=== PATIENT | male | born 1990 | race Caucasian/White ===

== ENCOUNTER 2016-03-12 22:44 | Emergency (ER) | payer OTHER ==
[2016-03-12 23:57] LABS: MEAN CORPUSCULAR HEMOGLOBIN 28.9 pg (27.0-33.0); MEAN CORPUSCULAR VOLUME 87.6 fl (80.0-96.0); RED CELL DISTRIBUTION WIDTH 13.1 % (11.5-14.5); WHITE BLOOD COUNT 12.2 K/mm3 (4.0-10.0)
[2016-03-13 00:09] LABS: AMPHETAMINES LEVEL URINE NEGATIVE (NEGATIVE); BENZODIAZEPINES URINE NEGATIVE (NEGATIVE); COCAINE METABOLITE URINE NEGATIVE (NEGATIVE); CONTROL LINE INT CTR LINE PRESENT; METHADONE URINE NEGATIVE (NEGATIVE); OPIATES URINE NEGATIVE (NEGATIVE); TRICYCLIC ANTIDEPRESS URINE NEGATIVE (NEGATIVE)
[2016-03-13 00:30] LABS: ALBUMIN 4.3 GM/DL (3.2-5.2); ALBUMIN/GLOBULIN RATIO 1.26 (1.00-1.93); ALKALINE PHOSPHATASE 56 U/L (45-117); ALT/SGPT 27 U/L (12-78); ANION GAP 10 MEQ/L (8-16); AST/SGOT 16 U/L (15-37); BILIRUBIN,DIRECT < 0.1 MG/DL (0.0-0.2); BILIRUBIN,TOTAL 0.3 MG/DL (0.2-1.0); BLOOD UREA NITROGEN 16 MG/DL (7-18); CALCIUM LEVEL 8.8 MG/DL (8.5-10.1); CARBON DIOXIDE LEVEL 28 MEQ/L (21-32); CHLORIDE LEVEL 104 MEQ/L (98-107); CREATININE FOR GFR 1.06 MG/DL (0.70-1.30); GLOMERULAR FILTRATION RATE > 60.0 (>60); GLUCOSE, FASTING 102 MG/DL (70-105); POTASSIUM SERUM 4.3 MEQ/L (3.5-5.1); SODIUM LEVEL 142 MEQ/L (136-145); TOTAL PROTEIN 7.7 GM/DL (6.4-8.2)
--- NOTE | 2016-03-13 02:56 | EDDOCDS ---
Physician Documentation [facility] Name: Guero Timmons Age: 25 yrs Sex: Male : 1990 Arrival Date: 03/12/2016 Time: 22:44 Bed [facility] Private MD: Disposition: 03/13/16 02:16 Discharged to Home/Self Care. Impression: Acute stress reaction. - Condition is Stable. - Discharge Instructions: Helping Someone Who is Suicidal, Panic Attacks, Self-Destructive Behavior, Anger Management, Panic Attacks, [id number]. - Medication Reconciliation, Local Pharmacy Hours form. - Follow up: Winston León, Behavioral Health; When: Today; Reason: Continuance of care. - Problem is an acute exacerbation. - Symptoms have improved. Historical: - Allergies: no known allergies; - Home Meds: 1. none - PMHx: none; - PSHx: none; - Social history: Smoking status: Chewing Tobacco No barriers to communication noted, The patient speaks fluent Cameroonian, Speaks appropriately for age. - Family history: Not pertinent. - : The pt / caregiver states he / she is not on anticoagulants. Home medication list is obtained from the patient. - Exposure Risk Screening:: None identified. Vital Signs: 03/12 22:48 BP 136 / 77; Pulse 86; Resp 18; Temp 98.2(O); Pulse Ox 97% on R/A; Weight 90.72 kg / sls1 200 lbs; Height 5 ft. 6 in. (167.64 cm); Pain 0/10; 03/13 02:54 BP 158 / 98; Pulse 62; Resp 16; Temp 98.2; Pulse Ox 100% ; Pain 0/10; slm 03/12 22:48 Body Mass Index 32.28 (90.72 kg, 167.64 cm) sls1 MDM: 03/12 23:00 Consult PFS/PSA/Cash Surrender Calculator ordered. mm11 23:00 Consult PFS/PSA/Cash Surrender Calculator: Patient's case requires discussion with on-call mm11 Psychiatrist ordered. 23:00 PSA/PFS to call Nursing Motion Picture Set Up Worker, to enter patient data on [place] Safe [place] if patient mm11 involuntarily admitted or transferred for SI or HI ordered. 23:00 Confirm accurate psychiatric medication list and times of last dosage ordered. mm11 23:00 Detain Pt Until Medically/PFS Cleared ordered. mm11 23:07 Acetaminophen Level Ordered. EDMS 23:07 Basic Metabolic Profile Ordered. EDMS 23:07 Complete Blood Count Ordered. EDMS 23:07 Drug Eval Toxicology ED Only Ordered. EDMS 23:07 Ethyl Alcohol (ethanol) Ordered. EDMS 23:07 Liver Profile Ordered. EDMS 23:07 Salicylate Level Ordered. EDMS 23:07 Thyroid Stimulating Hormone Ordered. EDMS 03/13 00:45 Acetaminophen Level Reviewed. mm11 00:45 Complete Blood Count Reviewed. mm11 00:45 Salicylate Level Reviewed. mm11 00:45 Basic Metabolic Profile Reviewed. mm11 00:45 Drug Eval Toxicology ED Only Reviewed. mm11 00:45 Ethyl Alcohol (ethanol) Reviewed. mm11 00:45 Liver Profile Reviewed. mm11 00:45 Thyroid Stimulating Hormone Reviewed. mm11 01:07 Financial registration complete. [facility] 01:29 Consult PFS/PSA/Cash Surrender Calculator complete. cl 01:29 Consult PFS/PSA/Cash Surrender Calculator: Patient's case requires discussion with on-call cl Psychiatrist complete. 01:29 PSA/PFS to call Nursing Motion Picture Set Up Worker, to enter patient data [place] Safe [place] if patient cl involuntarily admitted or transferred for SI or HI complete. 01:58 [facility] Payment Agreement was scanned into [employer] and attached to record. [facility] Signatures: Dispatcher [employer] EDMS Roman Rios PSA PSA cl Wagner Pedersen, DO DO mm11 Ana Beltrán, RN RN sls1 Gena Samayoa LPN LPN Joya Lee [facility] The chart was reviewed and I authenticate all verbal orders and agree with the evaluation and treatment provided.Corrections: (The following items were deleted from the chart) 03/12 23: 23:00 ACETAMINOPHEN LEVEL+LAB ordered. EDMS EDMS 23: 23:00 BASIC METABOLIC PROFILE+LAB ordered. EDMS EDMS 23: 23:00 COMPLETE BLOOD COUNT+LAB ordered. EDMS EDMS 23: 23:00 DRUG EVAL TOXICOLOGY ED ONLY+LAB ordered. EDMS EDMS 23: 23:01 ETHYL ALCOHOL (ETHANOL)+LAB ordered. EDMS EDMS 23:01 23:01 HCG, QUALITATIVE+LAB ordered. EDMS EDMS 23: 23:01 LIVER PROFILE+LAB ordered. EDMS EDMS 23: 23:01 SALICYLATE LEVEL+LAB ordered. EDMS EDMS 23:01 23:01 THYROID STIMULATING HORMONE+LAB ordered. EDMS EDMS : 03/13 01:58 [facility] Payment Agreement [facility]
--- NOTE | 2016-03-13 02:56 | EDDOCDS ---
Nurse's Notes [facility] Name: Guero Timmons Age: 25 yrs Sex: Male : 1990 Arrival Date: 03/12/2016 Time: 22:44 Bed [facility] Private MD: Diagnosis: Acute stress reaction Presentation: 03/12 22:45 Presenting complaint: EMS states: Pt having argument with ex in [place], reports sls1 ex called EMS stating he was suicidal, pt does report making statements via text, but reports " said out of anger" Pt denies SI or HI. Mental Health Triage Level: Level 2: Suicidal statements. Adult Sepsis Screening: The patient does not have new or worsening altered mentation. Patient's respiratory rate is less than 22. Systolic blood pressure is greater than 100. Patient has a qSOFA score of 0- Negative Sepsis Screen. Suicide/Homicide risk assessment- the patient denies having any suicidal and/or homicidal ideations and does not present with any other emotional, behavioral or mental health complaints. 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 Transition of care: patient was not received from another setting of care. 22:45 Acuity: CECILE Level 3 sls1 22:45 Method Of Arrival: Ambulance sls1 Triage Assessment: 22:48 General: Appears in no apparent distress, Behavior is appropriate for age, cooperative. sls1 Pain: Denies pain. Pt Declines HIV testing. The patient is triaged at the bedside. See Assessment in Nurses Notes section of ED record. Neurological: Level of Consciousness is awake, alert. Respiratory: Airway is patent Respiratory effort is even, unlabored, Respiratory pattern is regular, symmetrical. Derm: No deficits noted. Historical: - Allergies: no known allergies; - Home Meds: 1. none - PMHx: none; - PSHx: none; - Social history: Smoking status: Chewing Tobacco No barriers to communication noted, The patient speaks fluent Turkmen, Speaks appropriately for age. - Family history: Not pertinent. - : The pt / caregiver states he / she is not on anticoagulants. Home medication list is obtained from the patient. - Exposure Risk Screening:: None identified. Screenin:49 Screening information is obtained from the patient. Fall risk: No risks identified. sls1 Assistance ADL's: requires no assistance with activities of daily living. Abuse/DV Screen: The patient / caregiver reports he/she is: not in a situation that causes fear, pain or injury. Nutritional screening: No deficits noted. Advance Directives: Further advance directive information is declined. home support is adequate. Assessment: 22:49 General: Appears in no apparent distress, Behavior is appropriate for age, cooperative, sls1 see triage assessment. 23:25 General: Appears in no apparent distress, comfortable, Behavior is appropriate for age, slm cooperative, pleasant. General: pt sitting on stretcher quietly Chain of command in room . Neurological: Level of Consciousness is awake, alert, obeys commands. Respiratory: Airway is patent Respiratory effort is even, unlabored. Derm: Skin is pink, warm & dry. 03/13 00:30 General: Appears in no apparent distress, comfortable, Behavior is appropriate for age, slm cooperative, pleasant. General: pt sitting on stretcher chain of command in room . Respiratory: Airway is patent Respiratory effort is even, unlabored. 01:43 General: Appears in no apparent distress, comfortable. General: pt sitting on stretcher slm chain of command in room security observing . Pain: Denies pain. Neurological: Level of Consciousness is awake, alert, obeys commands. Respiratory: Airway is patent Respiratory effort is even, unlabored. 02:53 Reassessment: Patient appears in no apparent distress at this time. Pain: Denies pain. slm Respiratory: No deficits noted. 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 [facility] Behavioral Health: cl The patient is not an established patient of [facility] Behavioral Health. Referral Information: Evaluation referral is generated by Winston León [facility]. The patient was referred for evaluation because Pt was speaking with ex- annie in [place] and allegedly made suicidal comment?. Subjective: The patients chief complaint is Pt is calm/cooperative/pleasant, reports he had been speaking with ex annie and at one point they were having disagreement, pt admits he said "something out of anger that I didn't mean" and apparently [facility] was contacted. Pt adamantly denies any suicidal thought/plan/intent, denies any prior psych hx, denies any prior attempts at self harm. Pt from spouse x 1 year after 3 year marriage(they have 2 children), pt states they have been reconciling and actually plan to re- in 2 weeks. Pt reports he received message today from female acquaintance(whom he'd been seeing in recent past) and found out she is , she informed him of this today but is unconfirmed. Pt was fearing he may be father and discussed this with ex , felt at one point ex may be re-considering getting re- and pt made statement at that time. Pt reports they actually finished the conversation by face-timing and all seemed well, then he receive a phone call that there were concerns about his safety and PERRY arrived. Pt continues to flatly deny any SI or safety issues, denies any other stressors, doing well in [employer](4 years/no deployments), can CFS. . Delusions are denied. Patient's mood is dysphoric, Hallucinations are denied. Mental Health history: no relevant mental health problems or treatments. Mental Health Admissions: None. Current Outpatient Mental Health Services: None. Current living environment is The patient is . Patient presents to Emergency Department with the following symptoms within the past 2 weeks: relational problem, suicidal ideation with no plan. Substance abuse: Pt denies. Mental status exam: Patients appearance is appropriate, Patient's behavior is cooperative, Speech is normal. Affect is appropriate. Mood is dysphoric. Hallucinations are denied. Appetite is normal. Memory is good. Energy level is normal. Content of thought is normal. Thought process is intact. Cognitive level is oriented to person, place, time and situation Patient's insight is fair. Judgement is fair. Rapport with interviewer is good. Suicidal Ideation is denied. Homicidal ideation is denied. Disposition: Medically cleared for disposition by Wagner Pedersen DO Psychiatric Consult is deferred per ED physician, Dr Pedersen. The patient has a safe destination which is back to [place] with NCO's, can CFS and denies SI/HI, will f/u at [facility] later this morning per protocol. [facility] Admission Criteria: Not Applicable. [place] because the patient does not display any suicidal or homicidal ideations and does not pose a risk to self or others. DSM-V Differential Diagnosis: Acute Stress Disorder (F 43.0). Insurance Pre-Certification: Not Required. Vital Signs: 03/12 22:48 BP 136 / 77; Pulse 86; Resp 18; Temp 98.2(O); Pulse Ox 97% on R/A; Weight 90.72 kg; [facility] Height 5 ft. 6 in. (167.64 cm); Pain 0/10; 03/13 02:54 BP 158 / 98; Pulse 62; Resp 16; Temp 98.2; Pulse Ox 100% ; Pain 0/10; slm 03/12 22:48 Body Mass Index 32.28 (90.72 kg, 167.64 cm) [facility] Vitals: 03/12 22:48 Log In Time N/A - ambulance arrival. [facility] ED Course: 22:45 Patient visited by Luther Bah. zo 22:45 Patient moved to [facility] zo 22:45 Patient moved to [facility] zo 22:47 Triage Initiated [facility] 22:49 The patient / caregiver is instructed regarding the plan of care and ED course. [facility] Accompanied by escort, Patient has correct armband on for positive identification. Security observing. Cardiac monitoring not applicable on this patient. 22:50 Patient visited by Ana Beltrán RN. [facility] 22:59 Wagner Pedersen DO is Attending Physician. [facility] 22:59 Patient visited by Wagner Pedersen DO. [facility] 23:24 Gena Samayoa LPN is Primary Nurse. [facility] 23:26 Patient visited by Gena Samayoa LPN. [facility] 23:27 Patient visited by Gena Samayoa LPN. [facility] 23:27 No IV's were initiated during this patient's visit. No procedures done that require slm assistance. Labs drawn. (by ED staff). Sent per order to lab. Urine collected. Urine specimen sent to lab. 23:27 Acetaminophen Level Sent. m 23:27 Basic Metabolic Profile Sent. m 23:27 Complete Blood Count Sent. [facility] 23:27 Drug Eval Toxicology ED Only Sent. slm 23:27 Ethyl Alcohol (ethanol) Sent. [facility] 23:27 Liver Profile Sent. [facility] 23:27 Salicylate Level Sent. [facility] 23:27 Thyroid Stimulating Hormone Sent. [facility] 23:34 Accompanied by Law Enforcement, Patient has correct armband on for positive tmm1 identification. Placed in gown. Placed in psych safe attire. Bed in low position. Side rails up X 1. Security observing. Property removed, inventory done, secured in secure belongings bag, Placed locker #5. Door closed. Noise minimized. Visitors limited. chain of command notified and in room . 23:45 Psych Safety Check: Location: Psych Room. Visual Assessment: Cooperative. tmm1 03/13 00:00 Psych Safety Check: Location: Psych Room. Visual Assessment: Cooperative. tmm1 00:10 Patient visited by Charlene Blake PCA. tmm1 00:28 Patient visited by Wagner Pedersen DO. mm11 00:50 Patient visited by Charlene Blake PCA. tmm1 01:15 Patient visited by Charlene Blake PCA. tmm1 01:44 Patient visited by Gena Samayoa LPN. slm 01:58 Patient name changed from Guero\\S\\\\S\\Timmons\\S\\ to Guero\\S\\Timothy\\S\\Timmons. EDMS 01:58 [facility] Payment Agreement was scanned into [employer] and attached to record. [facility] 02:16 [facility] is Referral Physician. mm11 02:54 Patient visited by Gena Samayoa LPN. slm 02:55 Patient visited by Gena Samayoa LPN. [facility] Order Results: Lab Order: Acetaminophen Level; SPEC'M 03/12/16 23:20 Test: ACETAMINOPHEN LEVEL; Value: < 2.0; Range: 10.0-30.0; Abnormal: Below low normal; Units: UG/ML; Status: F Lab Order: Basic Metabolic Profile; SPEC'M 03/12/16 23:20 Test: GLUCOSE, FASTING; Value: 102; Range: 70-105; Units: MG/DL; Status: F Test: BLOOD UREA NITROGEN; Value: 16; Range: 7-18; Units: MG/DL; Status: F Test: CREATININE FOR GFR; Value: 1.06; Range: 0.70-1.30; Units: MG/DL; Status: F Test: GLOMERULAR FILTRATION RATE; Value: > 60.0; Range: >60; Status: F Test: SODIUM LEVEL; Value: 142; Range: 136-145; Units: MEQ/L; Status: F Test: POTASSIUM SERUM; Value: 4.3; Range: 3.5-5.1; Units: MEQ/L; Status: F Test: CHLORIDE LEVEL; Value: 104; Range: 98-107; Units: MEQ/L; Status: F Test: CARBON DIOXIDE LEVEL; Value: 28; Range: 21-32; Units: MEQ/L; Status: F Test: ANION GAP; Value: 10; Range: 8-16; Units: MEQ/L; Status: F Test: CALCIUM LEVEL; Value: 8.8; Range: 8.5-10.1; Units: MG/DL; Status: F Test Note: ; Units are mL/min/1.73 m2 Chronic Kidney Disease Staging per NKF: Stage I & II GFR >=60 Normal to Mildly Decreased Stage III GFR 30-59 Moderately Decreased Stage IV GFR 15-29 Severely Decreased Stage V GFR <15 Very Little GFR Left ESRD GFR <15 on BILLET CUTTER Lab Order: Complete Blood Count; SPEC'M 03/12/16 23:20 Test: WHITE BLOOD COUNT; Value: 12.2; Range: 4.0-10.0; Abnormal: Above high normal; Units: K/mm3; Status: F Test: RED BLOOD COUNT; Value: 5.58; Range: 4.30-6.10; Units: M/mm3; Status: F Test: HEMOGLOBIN; Value: 16.1; Range: 14.0-18.0; Units: g/dl; Status: F Test: HEMATOCRIT; Value: 48.9; Range: 42.0-52.0; Units: %; Status: F Test: MEAN CORPUSCULAR VOLUME; Value: 87.6; Range: 80.0-96.0; Units: fl; Status: F Test: MEAN CORPUSCULAR HEMOGLOBIN; Value: 28.9; Range: 27.0-33.0; Units: pg; Status: F Test: MEAN CORPUSCULAR HGB CONC; Value: 33.0; Range: 32.0-36.5; Units: g/dl; Status: F Test: RED CELL DISTRIBUTION WIDTH; Value: 13.1; Range: 11.5-14.5; Units: %; Status: F Test: PLATELET COUNT, AUTOMATED; Value: 232; Range: 150-450; Units: k/mm3; Status: F Lab Order: Drug Eval Toxicology ED Only; SPEC'M 03/12/16 23:20 Test: AMPHETAMINES LEVEL URINE; Value: NEGATIVE; Range: NEGATIVE; Status: F Test: BARBITURATES URINE; Value: NEGATIVE; Range: NEGATIVE; Status: F Test: BENZODIAZEPINES URINE; Value: NEGATIVE; Range: NEGATIVE; Status: F Test: CANNABINOIDS URINE; Value: NEGATIVE; Range: NEGATIVE; Status: F Test: COCAINE METABOLITE URINE; Value: NEGATIVE; Range: NEGATIVE; Status: F Test: METHADONE URINE; Value: NEGATIVE; Range: NEGATIVE; Status: F Test: OPIATES URINE; Value: NEGATIVE; Range: NEGATIVE; Status: F Test: TRICYCLIC ANTIDEPRESS URINE; Value: NEGATIVE; Range: NEGATIVE; Status: F Test Note: ; ALL PRESUMPTIVE POSITIVE FINDINGS ARE UNCONFIRMED NORMAL VALUES THRESHOLD IN NG/ML AMPHETAMINES 1000 METHAMPHETAMINES 1000 BARBITURATES 300 BENZODIAZEPINES 300 CANNABINOIDS (THC) 50 COCAINE METABOLITE 300 METHADONE 300 OPIATES 300 PHENCYCLIDINE 25 TRICYCLIC ANTIDEPRESSANTS 1000 RESULTS ARE FOR MEDICAL PURPOSES ONLY. ALL URINE SPECIMENS WILL BE SAVED FOR 3 DAYS. IF CONFIRMATION OF A PRESUMPTIVE POSTIVE SCREEN RESULT IS DESIRED, CALL CHEMISTRY ([phone]) AND REQUEST URINE TO BE SENT TO REFERENCE LAB. FOR A LIST OF CLOSELY RELATED COMPOUNDS PLEASE CALL THE LAB. Lab Order: Ethyl Alcohol (ethanol); SPEC'M 03/12/16 23:20 Test: ETHYL ALCOHOL (ETHANOL); Value: < 0.003; Range: 0.000-0.010; Units: %; Status: F Lab Order: Liver Profile; SPEC'M 03/12/16 23:20 Test: AST/SGOT; Value: 16; Range: 15-37; Units: U/L; Status: F Test: ALT/SGPT; Value: 27; Range: 12-78; Units: U/L; Status: F Test: ALKALINE PHOSPHATASE; Value: 56; Range: 45-117; Units: U/L; Status: F Test: BILIRUBIN,TOTAL; Value: 0.3; Range: 0.2-1.0; Units: MG/DL; Status: F Test: BILIRUBIN,DIRECT; Value: < 0.1; Range: 0.0-0.2; Units: MG/DL; Status: F Test: TOTAL PROTEIN; Value: 7.7; Range: 6.4-8.2; Units: GM/DL; Status: F Test: ALBUMIN; Value: 4.3; Range: 3.2-5.2; Units: GM/DL; Status: F Test: ALBUMIN/GLOBULIN RATIO; Value: 1.26; Range: 1.00-1.93; Status: F Lab Order: Salicylate Level; SPEC'M 03/12/16 23:20 Test: SALICYLATE LEVEL; Value: < 1.7; Range: 5.0-30.0; Abnormal: Below low normal; Units: MG/DL; Status: F Lab Order: Thyroid Stimulating Hormone; SPEC'M 03/12/16 23:20 Test: THYROID STIMULATING HORMONE; Value: 1.580; Range: 0.358-3.740; Units: uIU/ML; Status: F Outcome: 02:16 Discharge ordered by Provider. mm11 02:53 Discharge Assessment: Patient awake, alert and oriented x 3. No cognitive and/or slm functional deficits noted. Patient verbalized understanding of disposition instructions. patient administered narcotics - no. The following High Risk Discharge criteria are identified: Yes, pt seen by md and maryam d/c home with chain of command . Discharged to home ambulatory, PERRY. Condition: good. Discharge instructions given to patient, Instructed on discharge instructions, follow up and referral plans. Demonstrated understanding of instructions, Pt was receptive of discharge instructions/ teaching. No special radiology studies were completed. 02:55 Patient left the ED. slm Signatures: Dispatcher [employer] EDMS Roman Rios, MARYAM PSA Luther Amin Matthew, DO DO mm11 Ana Beltrán RN RN sls1 McLnathaniel, Charlene, SIDE SHOW ENTERTAINER SIDE SHOW ENTERTAINER tmm1 Gena Samayoa LPN LPN slm [place], Sandra [facility] MTDD
--- NOTE | 2016-03-15 03:57 | EDDOCDS ---
Nurse's Notes [facility] Name: Guero Timmons Age: 25 yrs Sex: Male : 1990 Arrival Date: 03/12/2016 Time: 22:44 Bed [facility] Private MD: Diagnosis: Acute stress reaction Presentation: 03/12 22:45 Presenting complaint: EMS states: Pt having argument with ex in [place], reports sls1 ex called EMS stating he was suicidal, pt does report making statements via text, but reports " said out of anger" Pt denies SI or HI. Mental Health Triage Level: Level 2: Suicidal statements. Adult Sepsis Screening: The patient does not have new or worsening altered mentation. Patient's respiratory rate is less than 22. Systolic blood pressure is greater than 100. Patient has a qSOFA score of 0- Negative Sepsis Screen. Suicide/Homicide risk assessment- the patient denies having any suicidal and/or homicidal ideations and does not present with any other emotional, behavioral or mental health complaints. 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 Transition of care: patient was not received from another setting of care. 22:45 Acuity: CECILE Level 3 sls1 22:45 Method Of Arrival: Ambulance sls1 Triage Assessment: 22:48 General: Appears in no apparent distress, Behavior is appropriate for age, cooperative. sls1 Pain: Denies pain. Pt Declines HIV testing. The patient is triaged at the bedside. See Assessment in Nurses Notes section of ED record. Neurological: Level of Consciousness is awake, alert. Respiratory: Airway is patent Respiratory effort is even, unlabored, Respiratory pattern is regular, symmetrical. Derm: No deficits noted. Historical: - Allergies: no known allergies; - Home Meds: 1. none - PMHx: none; - PSHx: none; - Social history: Smoking status: Chewing Tobacco No barriers to communication noted, The patient speaks fluent Swedish, Speaks appropriately for age. - Family history: Not pertinent. - : The pt / caregiver states he / she is not on anticoagulants. Home medication list is obtained from the patient. - Exposure Risk Screening:: None identified. Screenin:49 Screening information is obtained from the patient. Fall risk: No risks identified. sls1 Assistance ADL's: requires no assistance with activities of daily living. Abuse/DV Screen: The patient / caregiver reports he/she is: not in a situation that causes fear, pain or injury. Nutritional screening: No deficits noted. Advance Directives: Further advance directive information is declined. home support is adequate. Assessment: 22:49 General: Appears in no apparent distress, Behavior is appropriate for age, cooperative, sls1 see triage assessment. 23:25 General: Appears in no apparent distress, comfortable, Behavior is appropriate for age, slm cooperative, pleasant. General: pt sitting on stretcher quietly Chain of command in room . Neurological: Level of Consciousness is awake, alert, obeys commands. Respiratory: Airway is patent Respiratory effort is even, unlabored. Derm: Skin is pink, warm & dry. 03/13 00:30 General: Appears in no apparent distress, comfortable, Behavior is appropriate for age, slm cooperative, pleasant. General: pt sitting on stretcher chain of command in room . Respiratory: Airway is patent Respiratory effort is even, unlabored. 01:43 General: Appears in no apparent distress, comfortable. General: pt sitting on stretcher slm chain of command in room security observing . Pain: Denies pain. Neurological: Level of Consciousness is awake, alert, obeys commands. Respiratory: Airway is patent Respiratory effort is even, unlabored. 02:53 Reassessment: Patient appears in no apparent distress at this time. Pain: Denies pain. slm Respiratory: No deficits noted. 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 [facility] Behavioral Health: cl The patient is not an established patient of [facility] Behavioral Health. Referral Information: Evaluation referral is generated by Winston León [facility]. The patient was referred for evaluation because Pt was speaking with ex- annie in [place] and allegedly made suicidal comment?. Subjective: The patients chief complaint is Pt is calm/cooperative/pleasant, reports he had been speaking with ex annie and at one point they were having disagreement, pt admits he said "something out of anger that I didn't mean" and apparently [facility] was contacted. Pt adamantly denies any suicidal thought/plan/intent, denies any prior psych hx, denies any prior attempts at self harm. Pt from spouse x 1 year after 3 year marriage(they have 2 children), pt states they have been reconciling and actually plan to re- in 2 weeks. Pt reports he received message today from female acquaintance(whom he'd been seeing in recent past) and found out she is , she informed him of this today but is unconfirmed. Pt was fearing he may be father and discussed this with ex , felt at one point ex may be re-considering getting re- and pt made statement at that time. Pt reports they actually finished the conversation by face-timing and all seemed well, then he receive a phone call that there were concerns about his safety and PERRY arrived. Pt continues to flatly deny any SI or safety issues, denies any other stressors, doing well in [employer](4 years/no deployments), can CFS. . Delusions are denied. Patient's mood is dysphoric, Hallucinations are denied. Mental Health history: no relevant mental health problems or treatments. Mental Health Admissions: None. Current Outpatient Mental Health Services: None. Current living environment is The patient is . Patient presents to Emergency Department with the following symptoms within the past 2 weeks: relational problem, suicidal ideation with no plan. Substance abuse: Pt denies. Mental status exam: Patients appearance is appropriate, Patient's behavior is cooperative, Speech is normal. Affect is appropriate. Mood is dysphoric. Hallucinations are denied. Appetite is normal. Memory is good. Energy level is normal. Content of thought is normal. Thought process is intact. Cognitive level is oriented to person, place, time and situation Patient's insight is fair. Judgement is fair. Rapport with interviewer is good. Suicidal Ideation is denied. Homicidal ideation is denied. Disposition: Medically cleared for disposition by Wagner Pedersen DO Psychiatric Consult is deferred per ED physician, Dr Pedersen. The patient has a safe destination which is back to [place] with NCO's, can CFS and denies SI/HI, will f/u at [facility] later this morning per protocol. [facility] Admission Criteria: Not Applicable. [place] because the patient does not display any suicidal or homicidal ideations and does not pose a risk to self or others. DSM-V Differential Diagnosis: Acute Stress Disorder (F 43.0). Insurance Pre-Certification: Not Required. Vital Signs: 03/12 22:48 BP 136 / 77; Pulse 86; Resp 18; Temp 98.2(O); Pulse Ox 97% on R/A; Weight 90.72 kg; [facility] Height 5 ft. 6 in. (167.64 cm); Pain 0/10; 03/13 02:54 BP 158 / 98; Pulse 62; Resp 16; Temp 98.2; Pulse Ox 100% ; Pain 0/10; slm 03/12 22:48 Body Mass Index 32.28 (90.72 kg, 167.64 cm) [facility] Vitals: 03/12 22:48 Log In Time N/A - ambulance arrival. [facility] ED Course: 22:45 Patient visited by Luther Bah. zo 22:45 Patient moved to [facility] zo 22:45 Patient moved to [facility] zo 22:47 Triage Initiated [facility] 22:49 The patient / caregiver is instructed regarding the plan of care and ED course. [facility] Accompanied by escort, Patient has correct armband on for positive identification. Security observing. Cardiac monitoring not applicable on this patient. 22:50 Patient visited by Ana Beltrán RN. [facility] 22:59 Wagner Pedersen DO is Attending Physician. [facility] 22:59 Patient visited by Wagner Pedersen DO. [facility] 23:24 Gena Samayoa LPN is Primary Nurse. [facility] 23:26 Patient visited by Gena Samayoa LPN. [facility] 23:27 Patient visited by Gena Samayoa LPN. [facility] 23:27 No IV's were initiated during this patient's visit. No procedures done that require slm assistance. Labs drawn. (by ED staff). Sent per order to lab. Urine collected. Urine specimen sent to lab. 23:27 Acetaminophen Level Sent. m 23:27 Basic Metabolic Profile Sent. m 23:27 Complete Blood Count Sent. [facility] 23:27 Drug Eval Toxicology ED Only Sent. slm 23:27 Ethyl Alcohol (ethanol) Sent. [facility] 23:27 Liver Profile Sent. [facility] 23:27 Salicylate Level Sent. [facility] 23:27 Thyroid Stimulating Hormone Sent. [facility] 23:34 Accompanied by Law Enforcement, Patient has correct armband on for positive tmm1 identification. Placed in gown. Placed in psych safe attire. Bed in low position. Side rails up X 1. Security observing. Property removed, inventory done, secured in secure belongings bag, Placed locker #5. Door closed. Noise minimized. Visitors limited. chain of command notified and in room . 23:45 Psych Safety Check: Location: Psych Room. Visual Assessment: Cooperative. tmm1 03/13 00:00 Psych Safety Check: Location: Psych Room. Visual Assessment: Cooperative. tmm1 00:10 Patient visited by Charlene Blake PCA. tmm1 00:28 Patient visited by Wagner Pedersen DO. mm11 00:50 Patient visited by Charlene Blake PCA. tmm1 01:15 Patient visited by Charlene Blake PCA. tmm1 01:44 Patient visited by Gena Saamyoa LPN. slm 01:58 Patient name changed from Guero\\S\\\\S\\Timmons\\S\\ to Guero\\S\\Timothy\\S\\Timmons. EDMS 01:58 [facility] Payment Agreement was scanned into [employer] and attached to record. [facility] 02:16 [facility] is Referral Physician. mm11 02:54 Patient visited by Gena Samayoa LPN. slm 02:55 Patient visited by Gena Samayoa LPN. sl 12:48 T-Sheet-- Draft Copy was scanned into [employer] and attached to record. gb Order Results: Lab Order: Acetaminophen Level; SPEC'M 03/12/16 23:20 Test: ACETAMINOPHEN LEVEL; Value: < 2.0; Range: 10.0-30.0; Abnormal: Below low normal; Units: UG/ML; Status: F Lab Order: Basic Metabolic Profile; SPEC'M 03/12/16 23:20 Test: GLUCOSE, FASTING; Value: 102; Range: 70-105; Units: MG/DL; Status: F Test: BLOOD UREA NITROGEN; Value: 16; Range: 7-18; Units: MG/DL; Status: F Test: CREATININE FOR GFR; Value: 1.06; Range: 0.70-1.30; Units: MG/DL; Status: F Test: GLOMERULAR FILTRATION RATE; Value: > 60.0; Range: >60; Status: F Test: SODIUM LEVEL; Value: 142; Range: 136-145; Units: MEQ/L; Status: F Test: POTASSIUM SERUM; Value: 4.3; Range: 3.5-5.1; Units: MEQ/L; Status: F Test: CHLORIDE LEVEL; Value: 104; Range: 98-107; Units: MEQ/L; Status: F Test: CARBON DIOXIDE LEVEL; Value: 28; Range: 21-32; Units: MEQ/L; Status: F Test: ANION GAP; Value: 10; Range: 8-16; Units: MEQ/L; Status: F Test: CALCIUM LEVEL; Value: 8.8; Range: 8.5-10.1; Units: MG/DL; Status: F Test Note: ; Units are mL/min/1.73 m2 Chronic Kidney Disease Staging per NKF: Stage I & II GFR >=60 Normal to Mildly Decreased Stage III GFR 30-59 Moderately Decreased Stage IV GFR 15-29 Severely Decreased Stage V GFR <15 Very Little GFR Left ESRD GFR <15 on STAFFING ACCOUNT MANAGER Lab Order: Complete Blood Count; SPEC'M 03/12/16 23:20 Test: WHITE BLOOD COUNT; Value: 12.2; Range: 4.0-10.0; Abnormal: Above high normal; Units: K/mm3; Status: F Test: RED BLOOD COUNT; Value: 5.58; Range: 4.30-6.10; Units: M/mm3; Status: F Test: HEMOGLOBIN; Value: 16.1; Range: 14.0-18.0; Units: g/dl; Status: F Test: HEMATOCRIT; Value: 48.9; Range: 42.0-52.0; Units: %; Status: F Test: MEAN CORPUSCULAR VOLUME; Value: 87.6; Range: 80.0-96.0; Units: fl; Status: F Test: MEAN CORPUSCULAR HEMOGLOBIN; Value: 28.9; Range: 27.0-33.0; Units: pg; Status: F Test: MEAN CORPUSCULAR HGB CONC; Value: 33.0; Range: 32.0-36.5; Units: g/dl; Status: F Test: RED CELL DISTRIBUTION WIDTH; Value: 13.1; Range: 11.5-14.5; Units: %; Status: F Test: PLATELET COUNT, AUTOMATED; Value: 232; Range: 150-450; Units: k/mm3; Status: F Lab Order: Drug Eval Toxicology ED Only; SPEC'M 03/12/16 23:20 Test: AMPHETAMINES LEVEL URINE; Value: NEGATIVE; Range: NEGATIVE; Status: F Test: BARBITURATES URINE; Value: NEGATIVE; Range: NEGATIVE; Status: F Test: BENZODIAZEPINES URINE; Value: NEGATIVE; Range: NEGATIVE; Status: F Test: CANNABINOIDS URINE; Value: NEGATIVE; Range: NEGATIVE; Status: F Test: COCAINE METABOLITE URINE; Value: NEGATIVE; Range: NEGATIVE; Status: F Test: METHADONE URINE; Value: NEGATIVE; Range: NEGATIVE; Status: F Test: OPIATES URINE; Value: NEGATIVE; Range: NEGATIVE; Status: F Test: TRICYCLIC ANTIDEPRESS URINE; Value: NEGATIVE; Range: NEGATIVE; Status: F Test Note: ; ALL PRESUMPTIVE POSITIVE FINDINGS ARE UNCONFIRMED NORMAL VALUES THRESHOLD IN NG/ML AMPHETAMINES 1000 METHAMPHETAMINES 1000 BARBITURATES 300 BENZODIAZEPINES 300 CANNABINOIDS (THC) 50 COCAINE METABOLITE 300 METHADONE 300 OPIATES 300 PHENCYCLIDINE 25 TRICYCLIC ANTIDEPRESSANTS 1000 RESULTS ARE FOR MEDICAL PURPOSES ONLY. ALL URINE SPECIMENS WILL BE SAVED FOR 3 DAYS. IF CONFIRMATION OF A PRESUMPTIVE POSTIVE SCREEN RESULT IS DESIRED, CALL CHEMISTRY ([phone]) AND REQUEST URINE TO BE SENT TO REFERENCE LAB. FOR A LIST OF CLOSELY RELATED COMPOUNDS PLEASE CALL THE LAB. Lab Order: Ethyl Alcohol (ethanol); SPEC'M 03/12/16 23:20 Test: ETHYL ALCOHOL (ETHANOL); Value: < 0.003; Range: 0.000-0.010; Units: %; Status: F Lab Order: Liver Profile; SPEC'M 03/12/16 23:20 Test: AST/SGOT; Value: 16; Range: 15-37; Units: U/L; Status: F Test: ALT/SGPT; Value: 27; Range: 12-78; Units: U/L; Status: F Test: ALKALINE PHOSPHATASE; Value: 56; Range: 45-117; Units: U/L; Status: F Test: BILIRUBIN,TOTAL; Value: 0.3; Range: 0.2-1.0; Units: MG/DL; Status: F Test: BILIRUBIN,DIRECT; Value: < 0.1; Range: 0.0-0.2; Units: MG/DL; Status: F Test: TOTAL PROTEIN; Value: 7.7; Range: 6.4-8.2; Units: GM/DL; Status: F Test: ALBUMIN; Value: 4.3; Range: 3.2-5.2; Units: GM/DL; Status: F Test: ALBUMIN/GLOBULIN RATIO; Value: 1.26; Range: 1.00-1.93; Status: F Lab Order: Salicylate Level; SPEC'M 03/12/16 23:20 Test: SALICYLATE LEVEL; Value: < 1.7; Range: 5.0-30.0; Abnormal: Below low normal; Units: MG/DL; Status: F Lab Order: Thyroid Stimulating Hormone; SPEC'M 03/12/16 23:20 Test: THYROID STIMULATING HORMONE; Value: 1.580; Range: 0.358-3.740; Units: uIU/ML; Status: F Outcome: 02:16 Discharge ordered by Provider. mm11 02:53 Discharge Assessment: Patient awake, alert and oriented x 3. No cognitive and/or slm functional deficits noted. Patient verbalized understanding of disposition instructions. patient administered narcotics - no. The following High Risk Discharge criteria are identified: Yes, pt seen by md and maryam d/c home with chain of command . Discharged to home ambulatory, PERRY. Condition: good. Discharge instructions given to patient, Instructed on discharge instructions, follow up and referral plans. Demonstrated understanding of instructions, Pt was receptive of discharge instructions/ teaching. No special radiology studies were completed. 02:55 Patient left the ED. slm Signatures: Dispatcher [employer] EDMS Roman Rios, MARYAM PSA cl Marilou Cesar, Reg Reg Luther Gupta Matthew, DO DO mm11 Ana Beltrán RN RN sls1 Charlene Blake, MEASURING CLERK MEASURING CLERK tmm1 Gena Samayoa LPN LPN slm Hook, Sandra [facility] Chart Complete MTDD
--- NOTE | 2016-03-15 03:57 | EDDOCDS ---
Physician Documentation [facility] Name: Guero Timmons Age: 25 yrs Sex: Male : 1990 Arrival Date: 03/12/2016 Time: 22:44 Bed [facility] Private MD: Disposition: 03/13/16 02:16 Discharged to Home/Self Care. Impression: Acute stress reaction. - Condition is Stable. - Discharge Instructions: Helping Someone Who is Suicidal, Panic Attacks, Self-Destructive Behavior, Anger Management, Panic Attacks, [id number]. - Medication Reconciliation, Local Pharmacy Hours form. - Follow up: Winston León, Behavioral Health; When: Today; Reason: Continuance of care. - Problem is an acute exacerbation. - Symptoms have improved. Historical: - Allergies: no known allergies; - Home Meds: 1. none - PMHx: none; - PSHx: none; - Social history: Smoking status: Chewing Tobacco No barriers to communication noted, The patient speaks fluent Liberian, Speaks appropriately for age. - Family history: Not pertinent. - : The pt / caregiver states he / she is not on anticoagulants. Home medication list is obtained from the patient. - Exposure Risk Screening:: None identified. Vital Signs: 03/12 22:48 BP 136 / 77; Pulse 86; Resp 18; Temp 98.2(O); Pulse Ox 97% on R/A; Weight 90.72 kg / sls1 200 lbs; Height 5 ft. 6 in. (167.64 cm); Pain 0/10; 03/13 02:54 BP 158 / 98; Pulse 62; Resp 16; Temp 98.2; Pulse Ox 100% ; Pain 0/10; slm 03/12 22:48 Body Mass Index 32.28 (90.72 kg, 167.64 cm) sls1 MDM: 03/12 23:00 Consult PFS/PSA/Licensed Embalmer Supervisor ordered. mm11 23:00 Consult PFS/PSA/Licensed Embalmer Supervisor: Patient's case requires discussion with on-call mm11 Psychiatrist ordered. 23:00 PSA/PFS to call Nursing Care Coordinator, to enter patient data on [place] Safe [place] if patient mm11 involuntarily admitted or transferred for SI or HI ordered. 23:00 Confirm accurate psychiatric medication list and times of last dosage ordered. mm11 23:00 Detain Pt Until Medically/PFS Cleared ordered. mm11 23:07 Acetaminophen Level Ordered. EDMS 23:07 Basic Metabolic Profile Ordered. EDMS 23:07 Complete Blood Count Ordered. EDMS 23:07 Drug Eval Toxicology ED Only Ordered. EDMS 23:07 Ethyl Alcohol (ethanol) Ordered. EDMS 23:07 Liver Profile Ordered. EDMS 23:07 Salicylate Level Ordered. EDMS 23:07 Thyroid Stimulating Hormone Ordered. EDMS 03/13 00:45 Acetaminophen Level Reviewed. mm11 00:45 Complete Blood Count Reviewed. mm11 00:45 Salicylate Level Reviewed. mm11 00:45 Basic Metabolic Profile Reviewed. mm11 00:45 Drug Eval Toxicology ED Only Reviewed. mm11 00:45 Ethyl Alcohol (ethanol) Reviewed. mm11 00:45 Liver Profile Reviewed. mm11 00:45 Thyroid Stimulating Hormone Reviewed. mm11 01:07 Financial registration complete. [facility] 01:29 Consult PFS/PSA/Licensed Embalmer Supervisor complete. cl 01:29 Consult PFS/PSA/Licensed Embalmer Supervisor: Patient's case requires discussion with on-call cl Psychiatrist complete. 01:29 PSA/PFS to call Nursing Care Coordinator, to enter patient data [place] Safe [place] if patient cl involuntarily admitted or transferred for SI or HI complete. 01:58 [facility] Payment Agreement was scanned into [employer] and attached to record. [facility] 12:48 T-Sheet-- Draft Copy was scanned into [employer] and attached to record. gb Signatures: Dispatcher [employer] EDMS Roman Rios PSA PSA cl Barnhardt, Marilou, Reg Reg gb Wagner Pedersen DO DO mm11 Ana Beltrán, RN RN sls1 Gena Samayoa LPN LPN slm Hook, Sandra [facility] The chart was reviewed and I authenticate all verbal orders and agree with the evaluation and treatment provided.Corrections: (The following items were deleted from the chart) 03/12 23: 23:00 ACETAMINOPHEN LEVEL+LAB ordered. EDMS EDMS 23: 23:00 BASIC METABOLIC PROFILE+LAB ordered. EDMS EDMS 23: 23:00 COMPLETE BLOOD COUNT+LAB ordered. EDMS EDMS 23: 23:00 DRUG EVAL TOXICOLOGY ED ONLY+LAB ordered. EDMS EDMS 23: 23:01 ETHYL ALCOHOL (ETHANOL)+LAB ordered. EDMS EDMS 23: 23:01 HCG, QUALITATIVE+LAB ordered. EDMS EDMS : 23:01 LIVER PROFILE+LAB ordered. EDMS EDMS : 23:01 SALICYLATE LEVEL+LAB ordered. EDMS EDMS : 23:01 THYROID STIMULATING HORMONE+LAB ordered. EDMS EDMS : 03/13 01:58 [facility] Payment Agreement [facility] 12:48 T-Sheet-- Draft Copy gb Chart Complete [facility]
--- NOTE | 2016-03-15 03:57 | EDDOCDS ---
Physician Documentation [facility] Name: Guero Timmons Age: 25 yrs Sex: Male : 1990 Arrival Date: 03/12/2016 Time: 22:44 Bed [facility] Private MD: Disposition: 03/13/16 02:16 Discharged to Home/Self Care. Impression: Acute stress reaction. - Condition is Stable. - Discharge Instructions: Helping Someone Who is Suicidal, Panic Attacks, Self-Destructive Behavior, Anger Management, Panic Attacks, [id number]. - Medication Reconciliation, Local Pharmacy Hours form. - Follow up: [facility], Behavioral Health; When: Today; Reason: Continuance of care. - Problem is an acute exacerbation. - Symptoms have improved. Historical: - Allergies: no known allergies; - Home Meds: 1. none - PMHx: none; - PSHx: none; - Social history: Smoking status: Chewing Tobacco No barriers to communication noted, The patient speaks fluent [place], Speaks appropriately for age. - Family history: Not pertinent. - : The pt / caregiver states he / she is not on anticoagulants. Home medication list is obtained from the patient. - Exposure Risk Screening:: None identified. Vital Signs: 03/12 22:48 BP 136 / 77; Pulse 86; Resp 18; Temp 98.2(O); Pulse Ox 97% on R/A; Weight 90.72 kg / sls1 200 lbs; Height 5 ft. 6 in. (167.64 cm); Pain 0/10; 03/13 02:54 BP 158 / 98; Pulse 62; Resp 16; Temp 98.2; Pulse Ox 100% ; Pain 0/10; slm 03/12 22:48 Body Mass Index 32.28 (90.72 kg, 167.64 cm) sls1 MDM: 03/12 23:00 Consult PFS/PSA/Smoking Pipe Maker ordered. mm11 23:00 Consult PFS/PSA/Smoking Pipe Maker: Patient's case requires discussion with on-call mm11 Psychiatrist ordered. 23:00 PSA/PFS to call Nursing Cardiac Rehabilitation Program Director, to enter patient data on [place] Safe Act if patient mm11 involuntarily admitted or transferred for SI or HI ordered. 23:00 Confirm accurate psychiatric medication list and times of last dosage ordered. mm11 23:00 Detain Pt Until Medically/PFS Cleared ordered. mm11 23:07 Acetaminophen Level Ordered. EDMS 23:07 Basic Metabolic Profile Ordered. EDMS 23:07 Complete Blood Count Ordered. EDMS 23:07 Drug Eval Toxicology ED Only Ordered. EDMS 23:07 Ethyl Alcohol (ethanol) Ordered. EDMS 23:07 Liver Profile Ordered. EDMS 23:07 Salicylate Level Ordered. EDMS 23:07 Thyroid Stimulating Hormone Ordered. EDMS 03/13 00:45 Acetaminophen Level Reviewed. mm11 00:45 Complete Blood Count Reviewed. mm11 00:45 Salicylate Level Reviewed. mm11 00:45 Basic Metabolic Profile Reviewed. mm11 00:45 Drug Eval Toxicology ED Only Reviewed. mm11 00:45 Ethyl Alcohol (ethanol) Reviewed. mm11 00:45 Liver Profile Reviewed. mm11 00:45 Thyroid Stimulating Hormone Reviewed. mm11 01:07 Financial registration complete. [facility] 01:29 Consult PFS/PSA/Smoking Pipe Maker complete. cl 01:29 Consult PFS/PSA/Smoking Pipe Maker: Patient's case requires discussion with on-call cl Psychiatrist complete. 01:29 PSA/PFS to call Nursing Cardiac Rehabilitation Program Director, to enter patient data [place] Safe [place] if patient cl involuntarily admitted or transferred for SI or HI complete. 01:58 [facility] [place] was scanned into [employer] and attached to record. [facility] 12:48 T-Sheet-- Draft Copy was scanned into [employer] and attached to record. gb Signatures: Dispatcher [employer] EDMS Roman Rios PSA PSA cl Barnhardt, Marilou, Reg Reg gb Wagner Pedersen DO DO mm11 Ana Beltrán, RN RN sls1 Gena Samayoa LPN LPN slm [place], Sandra [facility] The chart was reviewed and I authenticate all verbal orders and agree with the evaluation and treatment provided.Corrections: (The following items were deleted from the chart) 03/12 23: 23:00 ACETAMINOPHEN LEVEL+LAB ordered. EDMS EDMS 23: 23:00 BASIC METABOLIC PROFILE+LAB ordered. EDMS EDMS 23: 23:00 COMPLETE BLOOD COUNT+LAB ordered. EDMS EDMS 23: 23:00 DRUG EVAL TOXICOLOGY ED ONLY+LAB ordered. EDMS EDMS 23: 23:01 ETHYL ALCOHOL (ETHANOL)+LAB ordered. EDMS EDMS 23: 23:01 HCG, QUALITATIVE+LAB ordered. EDMS EDMS : 23:01 LIVER PROFILE+LAB ordered. EDMS EDMS : 23:01 SALICYLATE LEVEL+LAB ordered. EDMS EDMS : 23:01 THYROID STIMULATING HORMONE+LAB ordered. EDMS EDMS : 03/13 01:58 [facility] Payment Agreement [facility] 12:48 T-Sheet-- Draft Copy gb Chart Complete [facility]
== END 2016-03-13 02:55 | disposition home or self-care (01) ==
LOC: M ED 22:44
DX: F43.0 Acute stress reaction (principal); F17.210 Nicotine dependence, cigarettes, uncomplicated; Z91.018 Allergy to other foods
CPT/HCPCS: 36415; 80048; 80076; 80306; 84443; 85027; 99284; G0480